=== PATIENT | male | born 1985 | race African-American/Black ===

== ENCOUNTER 2025-03-04 16:36 | Emergency (ER) | payer MEDICAID ==
[~2025-03-04] VITALS: Ht 188 cm; Wt 105.0 kg
[~2025-03-04 16:36] MED LIST: CEPH500T MT; IBUP-2029 MT
[2025-03-04 17:02] VITALS: O2SAT 99
[2025-03-04 18:34] VITALS: BP 131/96; PULSE 100; RESP 16; TEMP 37.1; O2SAT 99
== END 2025-03-04 18:33 | disposition home or self-care (01) ==
LOC: ER 16:36
DX: S61.211D Laceration without foreign body of left index finger without damage to nail, subsequent encounter (principal); X58.XXXD Exposure to other specified factors, subsequent encounter
CPT/HCPCS: 99281

== ENCOUNTER 2025-10-24 09:03 | Emergency (ER) | payer MEDICAID ==
[~2025-10-24] VITALS: Ht 182.9 cm; Wt 82.0 kg
[~2025-10-24 09:03] MED LIST changes: +IBUP-1455 MT; -IBUP-2029 MT
[2025-10-24 09:18] VITALS: O2SAT 100
[2025-10-24] MEDS: ACETAMINOPHEN 500MG TABLET PO ONE (09:49)
[2025-10-24 11:08] VITALS: BP 130/86; PULSE 88; RESP 18; TEMP 36.6; O2SAT 100
== END 2025-10-24 11:08 | disposition home or self-care (01) ==
LOC: ER 09:03
DX: S40.012A Contusion of left shoulder, initial encounter (principal); S50.02XA Contusion of left elbow, initial encounter; S60.222A Contusion of left hand, initial encounter; S60.212A Contusion of left wrist, initial encounter; V00.831A Fall from motorized mobility scooter, initial encounter; Y93.89 Activity, other specified; Y92.89 Other specified places as the place of occurrence of the external cause; Y99.8 Other external cause status
CPT/HCPCS: 73060; 73080; 73110; 73130; 99284